=== PATIENT | female | born 1955 | race Caucasian/White ===

== ENCOUNTER 2019-07-07 09:32 | Observation (INO) | payer BC, OTHER ==
[2019-07-07] MEDS ORDERED: Diazepam 10 MG/2 ML SYRINGE ONE ×2 (10:07→10:59)
--- NOTE | 2019-07-07 10:20 | RAD ---
PORTABLE CHEST 1 VIEW: DATE: 07/07/2019. TIME: 9:41 a.m. HISTORY: Cough, syncope. FINDINGS: The heart size is normal. The lungs are expanded without lobar consolidation, pneumothoraces, or ple ural effusions. IMPRESSION: No acute process. POS: [facility]
--- NOTE | 2019-07-07 10:31 | CT ---
CT Brain WO Con: 07/07/2019 9:50 AM CLINICAL HISTORY: Dizziness with loss of consciousness . IMAGING TECHNIQUE: Multiple CT images were obtained of the brain without IV contrast. COMPARISON: None. FINDINGS: Brain: No acute infarct or hemorrhage is evident. No midline shift. Ventricles: Normal. No hydrocephalus.. Skull: Intact.. Visualized Paranasal sinuses: Clear.. Mastoid air cells:Clear. Extracranial soft tissues:Normal. IMPRESSION: No acute intracranial abnormality.
[2019-07-07 10:47] LABS: White Blood Cell (WBC) Count 5.4 thou/uL (4.8-10.8)
[2019-07-07 10:48] LABS: Hemoglobin 12.5 g/dL (12.0-16.0); Mean Corpuscular HGB CONC 32.3 g/dL (32.0-36.0); Mean Corpuscular Hemoglobin 29.7 pg (27.0-31.0); Mean Corpuscular Volume 91.9 fL (78.0-98.0); Mean Platelet Volume 8.4 fL (7.4-10.4); Platelet Count 172 thou/uL (130-400); RBC Distribution Width 12.1 % (11.5-14.5); Red Blood Cell (RBC) Count 4.21 mill/uL (4.20-5.40)
[2019-07-07 11:03] LABS: Band 26 % (5-11); Lymphocytes 9 % (21-51); MDiff Complete? YES; Monocytes 4 % (0-10); Neutrophil 61 % (42-75); Platelet Morphology Comment Appears Adequate; RBC Morphology Normal
[2019-07-07 11:06] LABS: ALT (SGPT) 18 U/L (8-55); AST (SGOT) 28 U/L (5-34); Albumin 4.2 g/dL (3.4-4.8); Alkaline Phosphatase 49 U/L (40-110); Anion Gap 13 mmol/L (10-20); BUN (Urea Nitrogen) 9 mg/dL (9.8-20.1); Bilirubin, Total 0.2 mg/dL (0.2-1.2); CK (CPK) 87 U/L (29-168); Calc. Creatinine Clearance 0 mL/min (70-130); Calcium 8.9 mg/dL (7.8-10.44); Carbon Dioxide 24 mmol/L (23-31); Chloride 100 mmol/L (98-107); Estimated GFR-MDRD 77; Globulin 2.7 g/dL (2.4-3.5); Glucose 121 mg/dL (80-115); Protein, Total 6.9 g/dL (6.0-8.3); Sodium 133 mmol/L (136-145)
[2019-07-07 13:26] LABS: Bilirubin Negative (Negative); Blood, Urine Negative (Negative); Clarity Turbid (Clear); Glucose, Urine (Dipstick) Normal (Negative); Leukocyte Negative Leu/uL (Negative); Nitrite Negative (Negative); Protein, Urine (Dipstick) 10 mg/dL (Neg-Trace); Urobilinogen Normal mg/dL (Less than 2)
--- NOTE | 2019-07-07 14:31 | CT ---
CT CERVICAL SPINE NONCONTRAST: DATE: 07/07/2019 HISTORY: cervical trauma FINDINGS: There are no jumped or perched facets. There is no evidence of acute fracture. The vertebral body hei ghts are maintained. There is no prevertebral soft tissue swelling. IMPRESSION: No evidence of acute fracture or acute traumatic subluxation.
[2019-07-07] MEDS ORDERED: Ondansetron PF 4 MG/2 ML Vial IVP PRN (15:35)
[2019-07-07] MEDS ORDERED: Ondansetron ODT 4 MG TAB PO PRN (15:35)
[2019-07-07] MEDS ORDERED: Sodium Chloride 0.9% 1,000 ML IV SCH (15:45)
[2019-07-07 16:00] LABS: D-Dimer Test 0.93 *mcg/mL (0.27-0.43); Prothrombin Time 13.6 SEC (12.0-14.7)
[2019-07-07 16:07] LABS: PTT 22.5 SEC (22.9-36.1)
[2019-07-07 16:15] VITALS: BMI 18.1
[2019-07-07 16:17] LABS: CRP (Inflammatory) Less than 0.50 mg/dL (= or < 0.5); Magnesium 1.8 mg/dL (1.6-2.6); Troponin I Less than 0.010 ng/mL (< 0.028)
[2019-07-07 16:18] LABS: Lactic Acid 0.9 mmol/L (0.5-2.2)
[2019-07-07] MEDS: Acetaminophen 325 MG TAB PO PRN (18:34)
[2019-07-07] MEDS: Meclizine HCl 12.5 MG TAB PO PRN (18:34)
[2019-07-07 18:56] LABS: Troponin I Less than 0.010 ng/mL (< 0.028)
[2019-07-07] MEDS: Famotidine/PF 20 mg/2ml Vial SLOW IVP SCH (22:15)
[2019-07-08] MEDS: Acetaminophen 325 MG TAB PO PRN ×2 (02:18→09:01)
[2019-07-08] MEDS: Meclizine HCl 12.5 MG TAB PO PRN ×2 (02:18→09:01)
[2019-07-08 05:19] LABS: Anion Gap 9 mmol/L (10-20); BUN (Urea Nitrogen) 8 mg/dL (9.8-20.1); Calc. Creatinine Clearance 69 mL/min (70-130); Calcium 8.4 mg/dL (7.8-10.44); Carbon Dioxide 27 mmol/L (23-31); Chloride 100 mmol/L (98-107); Estimated GFR-MDRD 89; Glucose 84 mg/dL (80-115); Potassium 3.6 mmol/L (3.5-5.1); Sodium 132 mmol/L (136-145)
[2019-07-08 06:16] LABS: Band 16 % (5-11); Eosinophils 1 % (0-10); Hemoglobin 11.2 g/dL (12.0-16.0); Lymphocytes 21 % (21-51); MDiff Complete? YES; Mean Corpuscular HGB CONC 33.2 g/dL (32.0-36.0); Mean Corpuscular Volume 90.3 fL (78.0-98.0); Monocytes 10 % (0-10); Neutrophil 52 % (42-75); Platelet Count 183 thou/uL (130-400); RBC Distribution Width 11.9 % (11.5-14.5); Red Blood Cell (RBC) Count 3.74 mill/uL (4.20-5.40); White Blood Cell (WBC) Count 3.3 thou/uL (4.8-10.8)
--- NOTE | 2019-07-08 07:17 | HP ---
PRIMARY CARE PHYSICIAN: Dr. Angel Werner. CHIEF COMPLAINT: Dizziness and collapsed. HISTORY OF PRESENT ILLNESS: Mrs. Maurer is a 64-year-old woman, who states she had a syncopal episode this morning while standing at the bathroom sink. She reports feeling lightheaded with sudden diaphoresis. She recalls putting her head down on the counter and apparently collapsed flat on her back. Her who was in the room nearby heard her fall and when he came to her side, she was flat on her back. He states she recovered after 1-2 minutes. The patient states she had been feeling generally unwell yesterday with aches and a mild dry cough. She recalls feeling feverish yesterday evening and with chills. She has had a reduced appetite and fluid intake over the last couple of days. 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 After collapsing, her helped to get her dressed and when he stood her up, she passed out once again. The patient reports having a spinning sensation immediately before the first collapse and continues to have a spinning sensation when she stands. Reports mild nausea, but no vomiting. Denies any headaches. No blurred vision. No speech changes. No facial numbness, tingling or weakness. No upper or lower extremity numbness, weakness, or tingling. She reports having mild pain in her neck, but has full range of motion. States she does feel congested. Denies any back pain. No blurred or double vision. No recent changes with her stools or urinary symptoms. All other review of systems are negative. The patient denies having any preceding chest pain, palpitations, or shortness of breath. She denies having any hemoptysis. No recent long car rides or flight. Denies any calf tenderness or lower leg swelling. PAST MEDICAL HISTORY: None. PAST SURGICAL HISTORY: D and C. SOCIAL HISTORY: The patient lives with her . Denies any tobacco use, alcohol consumption, or illicit drug use. She is fully independent. FAMILY HISTORY: Noncontributory. PHYSICAL EXAMINATION: GENERAL: The patient appears well developed, well nourished, and is in no acute distress. VITAL SIGNS: Temperature 98.3, pulse 68, respirations 17, O2 saturation 97% on room air, blood pressure 116/66. HEENT: The patient is notable for mild bruising around the right periorbital region. No bony tenderness or bone deformities. Pupils are equal, round, and reactive to light. Extraocular movements intact. Oropharynx is clear. NECK: Supple. Full range of motion. Mild pain with palpation to the right occipital neck region. LUNGS: Clear to auscultation bilaterally without any wheezes, rales, or rhonchi. CARDIAC: Regular rate and rhythm. ABDOMEN: Soft, nontender, nondistended. Normoactive bowel sounds present. EXTREMITIES: No lower leg swelling or edema. No calf tenderness. NEUROLOGIC: Alert and oriented x3. SKIN: Warm and dry. EMERGENCY DEPARTMENT COURSE: In the emergency department, she underwent an EKG which showed normal sinus rhythm with a heart rate of 67. There were no ST changes or T-wave abnormalities. She underwent laboratory studies, which showed a white count of 5.4, hemoglobin 12.5, hematocrit 38.7, platelets 122, neutrophils 61%, band neutrophils 26%. Sodium 132, potassium 4.0, BUN 9, creatinine 0.76, GFR 77, glucose , calcium 8.9, total bilirubin 0.2. Remaining LFTs unremarkable. CK 87. Initial troponin negative. Urinalysis done showed a turbid appearance with 40 ketones, otherwise unremarkable. IMAGING DATA: Done in the emergency department included a chest x-ray, which showed no acute process. She had a CT of the brain and cervical spine demonstrating no acute intracranial abnormality and no evidence of acute fracture or acute traumatic subluxation of the cervical spine. IMPRESSION AND PLAN: Ms. Maurer is a pleasant 64-year-old woman, who is being referred for management of the following; 1. Syncope and collapse. The patient appears to have an underlying infection, likely viral in nature. She did feel feverish and lightheaded since yesterday evening and has had reduced intake due to that. She has had EKG, which is normal. We will request an echo and orthostatic blood pressures. We will give IV fluids. The patient will be on continuous telemetry monitoring. We will give meclizine for dizziness. 2. Bandemia. Urine culture was requested; however, urinalysis unremarkable. Blood cultures requested as well. Respiratory viral panel to be done also. We will hold off on any IV antibiotics at this present time as there is no clear source for infection and could be viral in nature. 3. Gastrointestinal prophylaxis. Famotidine. 4. Deep venous thrombosis prophylaxis. Mechanical SCDs. 5. Code status full. Her surrogate decision maker is her , Angel Maurer. 6. The patient's case was discussed with Dr. Wyatt, who agrees with the plan of care as described above. Job ID: [id number]
[2019-07-08] MEDS: Famotidine/PF 20 mg/2ml Vial SLOW IVP SCH (09:01)
[2019-07-08] MEDS ORDERED: Loratadine 10 MG TAB PO SCH (11:45)
[2019-07-08] MEDS ORDERED: Fluticasone Propionate Nasal Spray 16 gm Bottle NASAL SCH (12:00)
[2019-07-08] MEDS ORDERED: Sodium Chloride 0.9% 1,000 ML IV SCH (12:00)
[2019-07-08] MEDS ORDERED: predniSONE 20 MG TAB PO SCH (12:00)
[2019-07-08] MEDS ORDERED: Cefdinir 300 MG CAP PO SCH ×2 (12:15→21:00)
[2019-07-08 15:59] VITALS: BP 129/79; TEMP 98.6
--- NOTE | 2019-07-08 19:49 | DIS ---
DATE OF ADMISSION: 07/07/2019 DATE OF DISCHARGE: 07/08/2019 DISCHARGE DISPOSITION: Home. DISCHARGE INSTRUCTIONS: 1. Follow up with primary care physician, Dr. Angel Werner in 1 week. 2. Follow up with Dr. Larsen as scheduled. 3. Event monitor has been arranged by Dr. Larsen. 4. Fall precaution was emphasized. DISCHARGE MEDICATIONS: 1. Omnicef 300 mg twice daily for total of 5 days. 2. Meclizine as needed for dizziness or vertigo. 3. Prednisone 20 mg daily for next 2 days. The patient was seen and examined on the day of discharge. Symptomatically, feels better. She was not orthostatic after IV hydration. BRIEF HOSPITAL COURSE: The patient is a 64-year-old female who presented to the hospital with syncopal episode. Over the last few days, the patient has generalized aches and pains along with cough and chills. Please refer to the history and physical for further details. The patient was admitted to the hospital with a diagnosis of syncope, probably secondary to dehydration/acute viral syndrome. She had 26% bandemia on admission. She showed good improvement with IV hydration. A flu testing was negative. Her orthostatic vital this afternoon was negative. An event monitor has been arranged by Dr. Larsen. An echocardiogram was obtained that showed ejection fraction 55% to 60% with diastolic dysfunction, mild mitral regurgitation, mild tricuspid regurgitation. Telemetry monitoring was negative for significant arrhythmias. Chest x-ray was negative for infiltrate. She also had CT scan of the brain and cervical spine CT which were negative for acute findings. FINAL DIAGNOSES: 1. Syncope secondary to dehydration. 2. Acute viral syndrome. 3. Upper respiratory tract infection. 4. Chronic diastolic heart failure. 5. Hyponatremia secondary to dehydration. 6. Starvation ketoacidosis secondary to poor oral intake. Ketones were 0.87 with ketonuria. 7. Significant bandemia of 26% on admission. Bandemia improved to 16% at discharge. PLAN: Plan of care was discussed with the patient in detail. She stated understanding. Job ID: [id number]
[2019-07-09] MEDS ORDERED: predniSONE 20 MG TAB PO SCH (08:00)
[2019-07-09] MEDS ORDERED: Loratadine 10 MG TAB PO SCH (09:00)
== END 2019-07-08 16:30 | disposition home or self-care (01) ==
LOC: ERS 09:32 → 2SE 16:00
PROVIDERS: ADMIT Internal Medicine; ATTEND Internal Medicine
DX: E86.0 Dehydration (principal); R55 Syncope and collapse; R42 Dizziness and giddiness; D72.825 Bandemia; J06.9 Acute upper respiratory infection, unspecified; B34.9 Viral infection, unspecified; E87.1 Hypo-osmolality and hyponatremia; I50.32 Chronic diastolic (congestive) heart failure; E87.2 Acidosis
CPT/HCPCS: 36415; 70450; 71045; 72125; 80048; 80053; 81003; 82010; 82550; 83605; 83735; 84145; 84484; 85025; 85379; 85610; 85730; 86140; 87040; 87086; 87804; 93005; 93306; 96361; 96374; 96375; 96376; G0378; J3360; J7512; J8597; S0028